=== PATIENT | male | born 2000 | race Caucasian/White ===

== ENCOUNTER 2024-11-20 13:00 | Emergency (ER) | payer MEDICAID, SELFPAY ==
--- NOTE | ~2024-11-20 | XR_ITS ---
CLINICAL HISTORY: coughing. pneumonia? 1 view chest x-ray Comparison: None Findings: No consolidation or effusion. Normal size heart. No acute fracture. IMPRESSION: 1. No acute findings. This document has been electronically signed by: Yesica Morfin MD on 11/20/2024 14:37:37
[2024-11-20 13:18] VITALS: BP 108/54; PULSE 100; RESP 16; TEMP 37; O2SAT 98; BMI 18.7
--- NOTE | 2024-11-20 13:23 | ED.GENADULT ---
HPI - General Adult General Chief complaint: Upper Respiratory Symptoms Stated complaint: Fever Vomiting Time Seen by Provider: 11/20/24 13:37 Source: patient Mode of arrival: ambulatory Limitations: no limitations History of Present Illness ED Provider: Kevon Simpson HPI narrative: 24 yold male healthy male presents to the ED for coughing, fever, and sore throat that began hits morning. Patient states his is sick also. Patient denies any chest pain or shortness of breath. Denies any recent long travel, recent surgery, calf pain, leg swelling, or pleurisy. Patient states 1 episode of coughing up mild streak of blood. Patient states fever was 102 Related Data Previous Rx's ?Medication ?Instructions ?Recorded benzonatate 200 mg capsule 200 mg PO TID PRN cough 5 days #15 11/20/24 caps naproxen 500 mg tablet 500 mg PO BID PRN pain 7 days #14 11/20/24 tabs Allergies Allergy/AdvReac Type Severity Reaction Status Date / Time No Known Allergies Allergy Verified 11/20/24 13:20 Review of Systems Review of Systems: Coughing, sore throat, fever Yes all other systems are reviewed and are negative [facility] Social History Social History Advance Directives: No Advance Directives Information Provided: No Physical Exam ED Vital Signs: Vital Signs - 24 hr 11/20/24 13:18 11/20/24 14:47 11/20/24 15:17 Temperature 98.6 F 98 F 98 F Pulse Rate 100 96 96 Respiratory Rate 16 19 19 Blood Pressure 108/54 L 118/76 118/76 Pulse Oximetry 98 98 98 Oxygen Delivery Method Room Air Room Air Room Air BMI result Body Mass Index 18.7 Const General: cooperative, healthy appearing, comfortable, no acute distress, well developed, alert, awake and Physically active Orientation/consciousness: patient oriented x3 HENMT Head: Yes normal to inspection, Yes No palpable skull fracture present, Yes normocephalic and Yes atraumatic Ears: hearing grossly normal bilaterally, external ears normal, TM's normal bilaterally, TM normal on the right, TM normal on the left, EAC's normal, mastoids normal and no periauricular adenopathy Throat: Yes posterior oropharynx normal, Yes tonsils normal and Yes uvula midline Eyes General: appearance normal, both eyes and all related structures Neck Neck: Yes normal visual inspection, Yes full ROM, Yes no lymphadenopathy, Yes no meningeal signs, Yes trachea midline, Yes supple, No anterior neck swelling and No tender Chest Chest palpation & inspection: normal inspection of the chest and normal palpation of entire chest wall Resp Effort & Inspection: normal respiratory effort and able to speak in complete sentences Auscultation: clear to auscultation bilaterally Cardio Jugular venous distension: no JVD Heart sounds: S1 normal heart sound present and S2 normal heart sound present GI Inspection: Yes normal to inspection Palpation (GI): Soft to palpation, not firm, nontender, no guarding and not rigid General: Yes no CVA tenderness Back/Spine/Pelvis Back: no CVA tenderness and No back tenderness Skin General skin exam: no rashes or lesions noted, elasticity normal and turgor normal Neuro General: patient oriented x3, gait normal, tone normal, moves all extremities, Normal light touch and pain sensation, no meningeal signs, no focal motor deficits, CN's II-XI intact bilaterally and normal sensation to monofilament Extrem Other: Bilateral lower extremity negative for swelling, pitting edema, or calf tendrness. General: Yes normal to inspection, Yes full ROM and Yes capillary refill normal Psych Appearance: grossly normal, well kempt and not disheveled Course Course Course Narrative: RME: 23-year-old male presents to ED for fever 102 this morning coughing up greem phlegm. one specks of blood, and sore throat. Patient states is also having similar symptoms. Lungs are clear. SARs strep ordered. Xray ordered Medical Decision Making Medical Decision Making [facility] Narrative: 24-year-old male presents to ED for URI symptoms. SARs strep x-ray ordered. Patient well-appearing. 2:50pm: Patient is SARs strep influenza COVID chest x-ray negative. Not suspecting PE, pericaridits, CHF, myocarditis, ID, cardiac tamponade, respiratory failure, sepsis, retropharyngeal abscess, Aston's angina, peritonsillar abscess, epiglottitis, or any other concerning symptoms. Patient explained worrisome signs and infroemd to return t the ED immediatley. Differential Diagnosis Differential Diagnoses: The differential diagnosis associated with the presentation includes (Pnuemmmonia, COVID, influenza, RSV) Admission/Observation Consideration of admission/observation: Escalation of care including admission/observation considered Lab Data [facility] Lab Attestation statement: I reviewed the patient's lab results. Labs: Lab Results 11/20/24 Range/Units 13:40 Influenza Type A (PCR) NEGATIVE (Negative) Influenza Type B (PCR) NEGATIVE (Negative) RSV RNA Qual (PCR) NEGATIVE (Negative) SARS-CoV-2 RNA (RT-PCR) NEGATIVE (Negative) S. pyogenes GrpA VERONICA Negative (Negative) Independent Interpretation I performed an independent interpretation of an: Plain X-Ray Radiology Impression Discussion of test interpretation with radiology: I have reviewed the radiologist's reading. Independent Historian Clinical information obtained from an independent historian. History obtained from or confirmed by: Other (patient) External Record Review External record reviewed: Other (prior visit) Prescription Management I considered prescription management with: Other (coughing) Discharge Plan Discharge Clinical Impression: Upper respiratory infection Patient Disposition: Home, Self-Care Instructions: Upper Respiratory Infection (ED) Additional Instructions: Recommend follow-up with primary care provider. You came back negative for COVID, influenza, strep, and pneumonia. Return to the ED immediately for any chest pain, shortness of breath, coughing up blood clots, leg swelling, calf pain, chest pain inspiration, drooling, change in voice, inability tolerate solid food/liquid, or any other concerning symptoms. Prescriptions: New naproxen 500 mg tablet 500 mg PO BID PRN (Reason: pain) 7 Days Qty: 14 0RF benzonatate 200 mg capsule 200 mg PO TID PRN (Reason: cough) 5 Days Qty: 15 0RF Stand Alone Forms: Work/School Release Interventions: ED Discharge Assessment Last Done: 11/20/24 15:17 Discharge Date/Time: 11/20/24 15:17 Print Language: Malagasy
[2024-11-20 14:18] LABS: IDNOW Serial# 58CA691E; Strep A Nucleic Acid Negative (Negative)
[2024-11-20 14:20] LABS: Influenza A PCR NEGATIVE (Negative); Influenza B PCR NEGATIVE (Negative); Resp Syncy Virus RNA Qual PCR NEGATIVE (Negative); SARS COV2 PCR INHOUSE NEGATIVE (Negative)
[2024-11-20 14:47] VITALS: BP 118/76; PULSE 96; RESP 19; TEMP 36.6; O2SAT 98
[2024-11-20 15:17] VITALS: BP 118/76; PULSE 96; RESP 19; TEMP 36.6; O2SAT 98
== END 2024-11-20 15:17 | disposition home or self-care (01) ==
PROVIDERS: Physician Assistant; Emergency Provider Emergency Medicine
DX: J06.9 Acute upper respiratory infection, unspecified (principal); R50.9 Fever, unspecified; R11.2 Nausea with vomiting, unspecified; R05.9 Cough, unspecified; J02.9 Acute pharyngitis, unspecified; Z03.818 Encounter for observation for suspected exposure to other biological agents ruled out
CPT/HCPCS: 0241U; 71045; 87651; 99282; 99283